=== PATIENT | male | born 1975 | race African-American/Black ===

== ENCOUNTER 2017-03-24 06:48 | Emergency (ER) | payer OTHER ==
[~2017-03-24] VITALS: Ht 170.2 cm; Wt 98.6 kg
[~2017-03-24 06:48] MED LIST: ALPR0.257 PO; AMLO10TA2 PO; ATOR20TA9 PO; LEVO80CA PO; LOSA100T2 PO; METF500T4 PO; METO-93 PO; ZOLP5TAB6 PO
[2017-03-24 06:51] VITALS: BP 164/94
[2017-03-24] MEDS ORDERED: LAMO100T5 PO (07:26)
[2017-03-24] MEDS ORDERED: KETOROLAC 30 MG/1 ML ONE (08:26)
[2017-03-24] MEDS ORDERED: KETOROLAC 30 MG/1 ML IM ONE (08:30)
== END 2017-03-24 09:38 | disposition home or self-care (01) ==
LOC: ED 08:19
DX: S16.1XXA Strain of muscle, fascia and tendon at neck level, initial encounter (principal); G44.219 Episodic tension-type headache, not intractable; J45.909 Unspecified asthma, uncomplicated; I10 Essential (primary) hypertension; E78.00 Pure hypercholesterolemia, unspecified; V43.52XA Car driver injured in collision with other type car in traffic accident, initial encounter; Y93.89 Activity, other specified; Y92.89 Other specified places as the place of occurrence of the external cause; Y99.8 Other external cause status
CPT/HCPCS: 70450; 72125; 96372; 99284; J1885

== ENCOUNTER → 2018-11-19 | Outpatient (CLI) | payer MEDICAID ==
[~2018-11-19] MED LIST changes: -AMLO10TA2 PO; +AMLO10TA8 PO; +ATOR20TA37 PO; -ATOR20TA9 PO; +GADOBUTROL 10 MMOL/10 ML PFS ONE; +LAMO100T5 PO; +METF500T17 PO; -METF500T4 PO
== END | disposition home or self-care (01) ==
LOC: CFH 13:39
PROVIDERS: ATTEND Nurse Practitioner Primary Care
DX: R51 Headache (principal)
CPT/HCPCS: 70553; A9585

== ENCOUNTER 2021-01-05 00:53 | Emergency (ER) | payer MEDICAID, OTHER ==
[~2021-01-05] VITALS: Ht 172.7 cm; Wt 86.0 kg
[~2021-01-05 00:53] MED LIST changes: +AMLO-211 PO; -AMLO10TA8 PO; -GADOBUTROL 10 MMOL/10 ML PFS ONE
[2021-01-05 00:56] VITALS: BP 160/107
--- NOTE | 2021-01-05 01:43 | NUR ---
Steri strips x3 placed to approximate wound, covered with large non adhesive bandaid.
== END 2021-01-05 01:54 | disposition home or self-care (01) ==
LOC: ED 01:23
DX: S20.359A Superficial foreign body of unspecified front wall of thorax, initial encounter (principal); I10 Essential (primary) hypertension; X58.XXXA Exposure to other specified factors, initial encounter; Y93.89 Activity, other specified; Y92.89 Other specified places as the place of occurrence of the external cause; Y99.8 Other external cause status
CPT/HCPCS: 99284

== ENCOUNTER 2021-02-04 18:22 | Emergency (ER) | payer OTHER ==
[~2021-02-04] VITALS: Ht 172.7 cm; Wt 89.4 kg
[2021-02-04] MEDS ORDERED: LIDOCAINE-MPF 1%, 5ML INFIL ONE (19:30)
[2021-02-04] MEDS ORDERED: L.E.T SOLUTION TP ONE (19:30)
[2021-02-04] MEDS ORDERED: LIDOCAINE-MPF 1%, 5ML ONE (19:37)
--- NOTE | 2021-02-04 19:40 | NUR ---
ANT PULLED FOR [facility]PA ADMIN.
[2021-02-04] MEDS ORDERED: BUPIVACAINE/PF 0.25% INFIL ONE (20:30)
[2021-02-04] MEDS ORDERED: BUPIVACAINE 0.25% ONE (20:31)
[2021-02-04 21:06] VITALS: BP 153/91
== END 2021-02-04 21:30 | disposition home or self-care (01) ==
LOC: ED 19:47
DX: S20.359A Superficial foreign body of unspecified front wall of thorax, initial encounter (principal); E11.65 Type 2 diabetes mellitus with hyperglycemia; J45.909 Unspecified asthma, uncomplicated; E78.5 Hyperlipidemia, unspecified; X58.XXXA Exposure to other specified factors, initial encounter; Y93.89 Activity, other specified; Y92.89 Other specified places as the place of occurrence of the external cause; Y99.8 Other external cause status
CPT/HCPCS: 10120; 99284; 99285